=== PATIENT | female | born 1990 | race African-American/Black ===

== ENCOUNTER 2016-09-22 13:13 | Emergency (ER) | payer OTHER ==
[2016-09-22 13:21] VITALS: BMI 37.5
--- NOTE | 2016-09-22 13:54 | PDOC ---
History of Present Illness - General History Source: Patient, Friend Exam Limitations: No Limitations - History of Present Illness Travel History: No Initial Comments: 26 yo F with h/o asthma presented to the ED with n/v and abd pain since 6am in the morning. Patient accounts that she had grilled beef and burger last night and this morning abd pain started and located in lower quadrants, non-radiating , 9/10, constant, spasm like, no allievating or aggrevating factors, associated with nausea, non-bilious vomiting, dizziness and watery diarrhea x 5 times. Denies recent travel, sick contact, fever, chills, chest pain and shortness of breath. <Reinier Grace - Last Filed: 09/22/16 18:42> <Parsia Frazier - Last Filed: 09/22/16 20:14> - General Chief Complaint: Pain Stated Complaint: ABD PAIN, VOMITING Time Seen by Provider: 09/22/16 13:33 Past History - Past Medical History Asthma: Yes - Surgical History Abdominal Surgery: Yes (HERNIA) - Psycho/Social/Smoking Cessation Hx Suicidal Ideation: No Smoking Status: No Smoking History: Never smoked Number of Cigarettes Smoked Daily: 0 Information on smoking cessation initiated: No Hx Alcohol Use: No Drug/Substance Use Hx: No Substance Use Type: None <Reinier Grace - Last Filed: 09/22/16 18:42> <Parisa Frazier - Last Filed: 09/22/16 20:14> - Past Medical History Allergies/Adverse Reactions: Allergies Allergy/AdvReac Type Severity Reaction Status Date / Time Penicillins Allergy Hives Verified 09/22/16 13:21 SEAFOOD Allergy Itching Uncoded 09/22/16 13:21 Home Medications: Ambulatory Orders Ondansetron Oral Solution [Zofran Oral Solution -] 4 mg PO BID PRN #1 bottle Review of Systems - Review of Systems Able to Perform ROS?: Yes Is the patient limited Vietnamese proficient: No Constitutional: No: Chills, Fever HEENTM: No: Blurred Vision, Throat Pain Respiratory: No: Cough, Shortness of Breath Cardiac (ROS): No: Chest Pain ABD/GI: Yes: Diarrhea, Nausea, Vomiting, Abdominal cramping : No: Dysuria Neurological: Yes: Dizziness <Reinier Grace - Last Filed: 09/22/16 18:42> *Physical Exam - Vital Signs Last Vital Signs Temp Pulse Resp BP Pulse Ox 98.7 F 67 18 149/98 100 09/22/16 13:14 09/22/16 13:14 09/22/16 13:14 09/22/16 13:14 09/22/16 13:14 - Physical Exam General Appearance: Yes: Mild Distress HEENT: positive: CORINNE. negative: Tonsillar Exudate, Tonsillar Erythema Neck: positive: Trachea midline, Supple Respiratory/Chest: positive: Lungs Clear, Normal Breath Sounds Cardiovascular: positive: Regular Rhythm, Regular Rate, S1, S2. negative: Systolic Murmur, Gallop/S3, Gallop/S4 Gastrointestinal/Abdominal: positive: Normal Bowel Sounds, Tender (R upper and lower quadrants). negative: Distended Lymphatic: negative: Adenopathy, Tenderness Extremity: negative: Swelling, Calf Tenderness Neurologic: positive: Fully Oriented, Alert <Reinier Grace - Last Filed: 09/22/16 18:42> - Vital Signs Last Vital Signs Temp Pulse Resp BP Pulse Ox 98.7 F 67 18 149/98 100 09/22/16 13:14 09/22/16 13:14 09/22/16 13:14 09/22/16 13:14 09/22/16 13:14 <Parisa Frazier - Last Filed: 09/22/16 20:14> ED Treatment Course - LABORATORY CBC & Chemistry Diagram: 09/22/16 14:35 09/22/16 14:35 <Reinier Grace - Last Filed: 09/22/16 18:42> - LABORATORY CBC & Chemistry Diagram: 09/22/16 14:35 09/22/16 14:35 - ADDITIONAL ORDERS Additional order review: Laboratory Results 09/22/16 09/22/16 14:35 14:00 Sodium 140 Potassium 4.1 Chloride 105 Carbon Dioxide 27 Anion Gap 8 BUN 7 Creatinine 0.6 Creat Clearance w eGFR > 60 Random Glucose 117 H Calcium 9.3 Total Bilirubin 0.4 D AST 15 ALT 27 Alkaline Phosphatase 89 Total Protein 7.9 Albumin 4.1 Lipase 74 Serum , Qual Negative 09/22/16 14:35 RBC 4.97 MCV 86.2 MCHC 32.9 RDW 16.2 H MPV 8.8 D Neutrophils % 65.9 Lymphocytes % 25.3 D Monocytes % 7.4 Eosinophils % 0.6 Basophils % 0.8 - Medications Given in the ED: ED Medications Discontinued Medications Generic Name Dose Route Start Last Admin Trade Name Ezequiel PRN Reason Stop Dose Admin Metoclopramide HCl 10 mg 09/22/16 14:49 09/22/16 15:03 Reglan Injection - IVPUSH 09/22/16 14:50 10 mg ONCE ONE Administration Metoclopramide HCl 10 mg 09/22/16 16:42 09/22/16 17:04 Reglan Injection - IVPUSH 09/22/16 16:43 10 mg ONCE ONE Administration Morphine Sulfate 4 mg 09/22/16 15:22 09/22/16 15:22 Morphine Injection - IVPUSH 09/22/16 15:23 4 mg ONCE ONE Administration Morphine Sulfate 4 mg 09/22/16 16:43 09/22/16 17:04 Morphine Injection - IVPUSH 09/22/16 16:44 4 mg ONCE ONE Administration Ondansetron HCl 4 mg 09/22/16 13:59 09/22/16 14:19 Zofran Injection IVPUSH 09/22/16 14:00 4 mg ONCE ONE Administration Ondansetron HCl 4 mg 09/22/16 15:04 09/22/16 15:11 Zofran Injection IVPUSH 09/22/16 15:05 4 mg ONCE ONE Administration Ondansetron HCl 4 mg 09/22/16 15:20 09/22/16 15:22 Zofran Injection IVPUSH 09/22/16 15:21 Not Given ONCE ONE <Parisa Frazier - Last Filed: 09/22/16 20:14> Medical Decision Making - Medical Decision Making 09/22/16 14:15 Will obtain labs, UA, lipase, test. Will give zofran, fluid, morphine for pain. 09/22/16 15:35 Labs essential normal except elevated WBC, will re-assess the patient and perform a PO trial. 09/22/16 16:26 Patient stated that her n/v and diarrhea have improved and she tolerated PO trial. Will discharge her with zofran and pepcid over the counter as needed. 09/22/16 16:50 Patient started vomiting again after eating solid food. Upon re-assessment, she c/o RLQ pain and rebound tenderness. Obturator sign positive. <Reinier Grace - Last Filed: 09/22/16 18:42> *DC/Admit/Observation/Transfer - Discharge Dispostion Admit: No <Reinier Grace - Last Filed: 09/22/16 18:42> <FreddieParisa Amy - Last Filed: 09/22/16 20:14> Diagnosis at time of Disposition: Gastroenteritis - Discharge Dispostion Disposition: HOME Condition at time of disposition: Stable - Prescriptions Prescriptions: Ondansetron Oral Solution [Zofran Oral Solution -] 4 mg PO BID PRN #1 bottle PRN Reason: Nausea - Patient Instructions Additional Instructions: Please take the zofran oral solution as needed whenever you have nausea and vomiting. If you have burning sensation in your stomach, you may take over-the- counter pepcid. Come in to the nearest ED if you still have uncontrolled and persistent nausea/ vomiting, fever, chills or severe stomach pain.
[2016-09-22] MEDS ORDERED: ONDANSETRON 4 MG/2 ML VIAL IVPUSH ONE ×3 (13:59→15:20)
[2016-09-22] MEDS ORDERED: morphine CARPU-JECT 4 MG/1 ML DISP.SYRIN IVPUSH PRN (14:00)
[2016-09-22] MEDS ORDERED: ONDANSETRON 4 MG/2 ML VIAL ONE ×2 (14:06→14:52)
[2016-09-22] MEDS ORDERED: SODIUM CHLORIDE 1,000 ML IV SCH (14:15)
[2016-09-22] MEDS ORDERED: METOCLOPRAMIDE HCL INJECTION 10 MG/2 ML VIAL IVPUSH ONE ×2 (14:49→16:42)
[2016-09-22] MEDS ORDERED: METOCLOPRAMIDE HCL INJECTION 10 MG/2 ML VIAL ONE ×2 (14:52→16:49)
--- NOTE | 2016-09-22 14:53 | PDOC ---
Attending Attestation - Resident Resident Name: Reinier Grace - ED Attending Attestation I have performed the following: I have examined & evaluated the patient, The case was reviewed & discussed with the resident, I agree w/resident's findings & plan, Exceptions are as noted - HPI HPI: 09/22/16 14:50 Healthy 26-year-old female presents with nausea/vomiting/diarrhea/generalized abdominal pain overnight, no localizing or persistent pain, no recent travel/ antibiotics/known sick contacts. - Physicial Exam PE: 09/22/16 14:50 Afebrile. Generalized abdominal discomfort without focal guarding or rebound, no right lower quadrant tenderness - Medical Decision Making 09/22/16 14:50 Patient seen and evaluated with the resident. I agree with the overall evaluation, assessment, and management with the following summary of visit: Healthy 26-year-old female with presentation that seems most consistent with gastroenteritis, less likely focal infectious process such as diverticulitis or appendicitis. Will check labs and urinalysis, urine IV fluids, antiemetics pain control reassess 09/22/16 16:52 Leukocytosis, chemistries wnl, urine negative. Symptoms initially improved but pain now localized to RLQ, where she has referred rebound and ttp. Now more concerning for evolving appendicitis. Will check CTAP, give pain control, reassess
[2016-09-22] MEDS ORDERED: morphine CARPU-JECT 4 MG/1 ML DISP.SYRIN ONE ×2 (14:56→16:52)
[2016-09-22 15:13] LABS: BASOPHIL 0.8 % (0-2.0); EOSINOPHIL 0.6 % (0-4.5); MCH 28.4 pg (25.7-33.7); MCHC 32.9 g/dl (32.0-36.0); MEAN CELL VOLUME 86.2 fl (80-96); MEAN PLT VOLUME 8.8 fl (7.5-11.1); NEUTROPHILS 65.9 % (42.8-82.8); PLATELET COUNT 302 K/MM3 (134-434); RDW 16.2 % (11.6-15.6); WHITE BLOOD COUNT 14.1 K/mm3 (4.0-10.0)
[2016-09-22 15:18] LABS: ALBUMIN 4.1 g/dl (3.4-5.0); ANION GAP 8 (8-16); BILIRUBIN,TOTAL 0.4 mg/dL (0.2-1.0); CALCIUM 9.3 mg/dL (8.5-10.1); CO2 27 mmol/L (21-32); CREATININE 0.6 mg/dL (0.55-1.02); GLUCOSE,RANDOM 117 mg/dL (74-106); SGOT/AST 15 U/L (15-37); SGPT/ALT 27 U/L (12-78); TOT PROT 7.9 g/dl (6.4-8.2)
[2016-09-22 15:19] LABS: ALK PHOS 89 U/L (45-117)
[2016-09-22] MEDS ORDERED: morphine CARPU-JECT 4 MG/1 ML DISP.SYRIN IVPUSH ONE ×2 (15:22→16:43)
[2016-09-22 21:05] VITALS: BP 109/63; PULSE 87; TEMP 98.5
== END 2016-09-22 20:05 | disposition home or self-care (01) ==
LOC: JER 13:13
PROC: 3E033NZ Introduction of Analgesics, Hypnotics, Sedatives into Peripheral Vein, Percutaneous Approach (ICD-10-PCS; principal; 2016-09-22)
PROC: 3E033GC Introduction of Other Therapeutic Substance into Peripheral Vein, Percutaneous Approach (ICD-10-PCS; 2016-09-22)
DX: K52.9 Noninfective gastroenteritis and colitis, unspecified (principal)
CPT/HCPCS: 36415; 74177-TC; 80053; 83690; 84703; 85025; 99282-25